=== PATIENT | female | born 1995 | race Caucasian/White ===

== ENCOUNTER 2020-11-09 02:06 | Emergency (ER) | payer OTHER ==
[2020-11-09 02:38] LABS: Appearance CLEAR (CLEAR); Bilirubin NEGATIVE (NEGATIVE); Blood SMALL Ery/ul (0-5); Glucose NEGATIVE (NEGATIVE); Ketones TRACE (NEGATIVE); Leukocyte Esterase NEGATIVE (NEGATIVE); Mucus SLIGHT /HPF (NEGATIVE); Nitrite NEGATIVE (NEGATIVE); Protein,Urine Dip NEGATIVE (Negative); RBC 0-2 /HPF (0-2); Specific Gravity 1.018 (1.005-1.025); Urobilinogen 2 mg/dL (0-1); WBC 0-2 /HPF (0-5)
--- NOTE | 2020-11-09 02:50 | ERPHSYRPT ---
- History of Present Illness Historian: patient Exam Limitations: no limitations Patient Subjective Stated Complaint: pt states "I have had belly pain and vomiting since 8 tonight." Triage Nursing Assessment: pt ambulated into the er; pt is axo x4; c/o abd pain; pt states 5/10 to epigastric region; pt states she took a home tonight and it was positive; abd is flat, soft; pt states radiating pain to rt flank region; tenderness present to epigastric region; pt states BM yesterday; c/o N/V every 20 minutes; hyperactive bowel sounds in all quads; vitals wnl Physician History: 25 yo wf who had a + test yesterday presents w epigastric pain since 20:00. Pain is described as "twisting" and 5/10 on scale. She has had N/V which started before the pain. Pt has never had this pain before, and movement makes it worse. She denies diarrhea/fever/hematemesis/dysuria/hematuria/vaginal bleeding. Pt has had no abdominal surgeries. Timing/Duration: other (20:00) Activities at Onset: rest Quality: other (Twisting) Abdominal Pain Onset Location: epigastric Pain Radiation: no radiation, shoulder Severity of Pain-Current: moderate Associated Symptoms: nausea, vomiting, No back, No chest pain, No diaphoresis, No diarrhea, No fever/chills, No fatigue, No headache, No heartburn, No loss of appetite, No neck pain, No rash, No shortness of breath, No weakness Previous symptoms: no prior history Allergies/Adverse Reactions: No Known Drug Allergies Allergy (Unverified 11/09/20 02:25) Hx Tetanus, Diphtheria Vaccination/Date Given: Yes Hx Influenza Vaccination/Date Given: Yes (2019) Hx Pneumococcal Vaccination/Date Given: No Immunizations Up to Date: Yes Travel Risk - International Travel Have you traveled outside of the country in past 3 weeks: No - Coronavirus Screening Are you exhibiting any of the following symptoms?: No Close contact with a COVID-19 positive Pt in past 14-21 Days: No - Vaccine Status Have you recieved a Covid-19 vaccination: Yes [employer]teration T[employer]or: [employer] - Vaccination Dates Date of 2cond Vaccination (if applicable): n/a Comment: 2nd dose 11/11/20 - Review of Systems Constitutional: No Symptoms Eyes: No Symptoms Ears, Nose, & Throat: No Symptoms Respiratory: No Symptoms Cardiac: No Symptoms Abdominal/Gastrointestinal: Abdominal Pain, Nausea, Vomiting Genitourinary Symptoms: No Symptoms Musculoskeletal: No Symptoms Skin: No Symptoms Neurological: No Symptoms Psychological: No Symptoms Endocrine: No Symptoms Hematologic/Lymphatic: No Symptoms Immunological/Allergic: Pollen Allergy - Past Medical History Pertinent Past Medical History: No - Past Surgical History Past Surgical History: No - Social History Smoking Status: Smoker, status unknown Exposure to second hand smoke: No Drug Use: none Patient Lives Alone: No Significant Family History: no pertinent family hx - Female History Hx Now: Yes (5 weeks) - Nursing Vital Signs Nursing Vital Signs: Initial Vital Signs Temperature 98.6 F 11/09/20 02:26 Pulse Rate 105 H 11/09/20 02:26 Respiratory Rate 16 11/09/20 02:26 Blood Pressure 131/75 11/09/20 02:26 O2 Sat by Pulse Oximetry 100 11/09/20 02:26 Pain Scale Pain Intensity 0 Mildly tachy - Physical Exam General Appearance: no apparent distress Eye Exam: PERRL/EOMI, eyes nml inspection Ears, Nose, Throat Exam: normal ENT inspection, TMs normal, pharynx normal, moist mucous membranes Neck Exam: normal inspection, non-tender, supple, full range of motion, No meningismus, No mass, No Brudzinski, No Kernig's Respiratory Exam: normal breath sounds, lungs clear, airway intact, No respiratory distress Cardiovascular Exam: tachycardia (Mildly) Gastrointestinal/Abdomen Exam: soft, normal bowel sounds, tenderness (Epigastric TTP wo guarding or rebound) Back Exam: normal inspection, normal range of motion Extremity Exam: normal inspection, normal range of motion Neurologic Exam: alert, oriented x 3, cooperative, 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 as tested, normal mood/affect, nml station & gait, sensation nml Skin Exam: normal color, warm, dry Lymphatic Exam: No adenopathy SpO2 Interpretation: normal SpO2: 100 O2 Delivery: Room Air - Course Nursing assessment & vital signs reviewed: Yes Ordered Tests: Medication Summary Discontinued Medications Generic Name Dose Route Start Last Admin Trade Name Freq PRN Reason Stop Dose Admin Sodium Chloride 1,000 mls @ 999 mls/hr 11/09/20 02:53 11/09/20 04:15 Sodium Chloride 0.9% 1000 Ml IV 11/09/20 03:53 Infused .Q1H1M STA Infusion Sodium Chloride Confirm 11/09/20 03:05 Sodium Chloride 0.9% 1000 Ml Administered 11/09/20 03:06 Dose 1,000 mls @ ud .ROUTE .STK-MED ONE Ondansetron HCl 4 mg 11/09/20 02:53 11/09/20 03:06 Zofran 4 Mg/2 Ml Vial IV 11/09/20 02:54 4 mg STAT ONE Administration Ondansetron HCl Confirm 11/09/20 03:05 Zofran 4 Mg/2 Ml Vial Administered 11/09/20 03:06 Dose 4 mg .ROUTE .STK-MED ONE Lab/Rad Data: Laboratory Result Diagrams 11/09/20 06:23 11/09/20 03:10 Laboratory Results 11/09/20 11/09/20 11/09/20 Range/Units 06:23 03:10 03:10 WBC 24.3 H 26.1 H* (4.0-10.5) K/mm3 RBC 4.53 4.65 (4.1-5.4) M/mm3 Hgb 13.7 14.2 (12.0-16.0) gm/dl Hct 40.5 41.5 (35-47) % MCV 89.4 89.2 (78-100) fl MCH 30.2 30.5 (26-32) pg MCHC 33.8 34.2 (32-36) g/dl RDW 12.8 12.8 (11.5-14.0) % Plt Count 241 264 (150-450) K/mm3 MPV 10.3 10.2 (7.5-11.0) fl Gran % 93.8 H (36.0-66.0) % Eos # (Auto) 0.03 (0-0.5) Absolute Lymphs (auto) 0.50 L (1.0-4.6) Absolute Monos (auto) 0.98 (0.0-1.3) Lymphocytes % 2.1 L (24.0-44.0) % Monocytes % 4.0 (0.0-12.0) % Eosinophils % 0.1 (0.00-5.0) % Basophils % 0.0 (0.0-0.4) % Absolute Granulocytes 22.82 H (1.4-6.9) Segmented Neutrophils 91 H (36.0-66.0) % Band Neutrophils 3 H (0.0-2.0) % Lymphocytes (Manual) 2 L (24-44) % Monocytes (Manual) 4 (0.0-12.0) % Basophils # 0.01 (0-0.4) Platelet Estimate NORMAL (NORMAL) RBC Morphology NORMAL Smear Path Review Sodium 136 L (137-145) mmol/L Potassium 3.7 (3.5-5.1) mmol/L Chloride 103 (98-107) mmol/L Carbon Dioxide 23 (22-30) mmol/L Anion Gap 12.6 (5-15) MEQ/L BUN 9 (7-17) mg/dL Creatinine 0.77 (0.52-1.04) mg/dL Estimated GFR > 60.0 ML/MIN Glucose 103 (74-106) mg/dL Calcium 8.7 (8.4-10.2) mg/dL Total Bilirubin 0.50 (0.2-1.3) mg/dL AST 23 (14-36) U/L ALT 27 (0-35) U/L Alkaline Phosphatase 58 (38-126) U/L Serum Total Protein 6.8 (6.3-8.2) g/dL Albumin 4.0 (3.5-5.0) g/dL Amylase 74 (30-110) U/L Lipase 97 (23-300) U/L Beta HCG, Quant 21812 mIU/ml Urine Color (YELLOW) Urine Appearance (CLEAR) Urine pH (5-6) Ur Specific Chama (1.005-1.025) Urine Protein (Negative) Urine Ketones (NEGATIVE) Urine Blood (0-5) Michael/ul Urine Nitrite (NEGATIVE) Urine Bilirubin (NEGATIVE) Urine Urobilinogen (0-1) mg/dL Ur Leukocyte Esterase (NEGATIVE) Urine WBC (Auto) (0-5) /HPF Urine RBC (Auto) (0-2) /HPF U Epithel Cells (Auto) (FEW) /HPF Urine Mucus (Auto) (NEGATIVE) /HPF Urine Culture Reflexed (NO) Urine Glucose (NEGATIVE) mg/dL Urine HCG, Qual (Negative) Slides for Path Review YES 11/09/20 11/09/20 Range/Units 02:25 02:25 WBC (4.0-10.5) K/mm3 RBC (4.1-5.4) M/mm3 Hgb (12.0-16.0) gm/dl Hct (35-47) % MCV (78-100) fl MCH (26-32) pg MCHC (32-36) g/dl RDW (11.5-14.0) % Plt Count (150-450) K/mm3 MPV (7.5-11.0) fl Gran % (36.0-66.0) % Eos # (Auto) (0-0.5) Absolute Lymphs (auto) (1.0-4.6) Absolute Monos (auto) (0.0-1.3) Lymphocytes % (24.0-44.0) % Monocytes % (0.0-12.0) % Eosinophils % (0.00-5.0) % Basophils % (0.0-0.4) % Absolute Granulocytes (1.4-6.9) Segmented Neutrophils (36.0-66.0) % Band Neutrophils (0.0-2.0) % Lymphocytes (Manual) (24-44) % Monocytes (Manual) (0.0-12.0) % Basophils # (0-0.4) Platelet Estimate (NORMAL) RBC Morphology Smear Path Review Sodium (137-145) mmol/L Potassium (3.5-5.1) mmol/L Chloride (98-107) mmol/L Carbon Dioxide (22-30) mmol/L Anion Gap (5-15) MEQ/L BUN (7-17) mg/dL Creatinine (0.52-1.04) mg/dL Estimated GFR ML/MIN Glucose (74-106) mg/dL Calcium (8.4-10.2) mg/dL Total Bilirubin (0.2-1.3) mg/dL AST (14-36) U/L ALT (0-35) U/L Alkaline Phosphatase (38-126) U/L Serum Total Protein (6.3-8.2) g/dL Albumin (3.5-5.0) g/dL Amylase (30-110) U/L Lipase (23-300) U/L Beta HCG, Quant mIU/ml Urine Color YELLOW (YELLOW) Urine Appearance CLEAR (CLEAR) Urine pH 5.0 (5-6) Ur Specific Chama 1.018 (1.005-1.025) Urine Protein NEGATIVE (Negative) Urine Ketones TRACE (NEGATIVE) Urine Blood SMALL (0-5) Michael/ul Urine Nitrite NEGATIVE (NEGATIVE) Urine Bilirubin NEGATIVE (NEGATIVE) Urine Urobilinogen 2 (0-1) mg/dL Ur Leukocyte Esterase NEGATIVE (NEGATIVE) Urine WBC (Auto) 0-2 (0-5) /HPF Urine RBC (Auto) 0-2 (0-2) /HPF U Epithel Cells (Auto) NONE (FEW) /HPF Urine Mucus (Auto) SLIGHT (NEGATIVE) /HPF Urine Culture Reflexed NO (NO) Urine Glucose NEGATIVE (NEGATIVE) mg/dL Urine HCG, Qual POSITIVE (Negative) Slides for Path Review - Progress Progress: improved Progress Note: 11/09/20 05:59 IV NS bolus/4mg IV Zofran w improvement US [id number] IUP per tech Gallbladder wnl per tech 11/09/20 06:44 CBC rechecked w WBC 24.3 Spoke to pt about admit due to pain of unknown etiology and leukocytosis. Pt refused admit at this time but agreed to come back to the ER if pain increased, vomiting increased, or if she developed a fever. Risks explained to pt. Counseled pt/family regarding: lab results, diagnosis, rad results - Departure Departure Disposition: Home Clinical Impression: Abdominal pain, Intrauterine , Leukocytosis Condition: Stable Critical Care Time: No Referrals: RERE BYNUM, WANDA [Primary Care Provider] - Instructions: Acute Abdomen (Belly Pain), Adult (DC) Additional Instructions: Fluids Rest Return to ER for increasing pain or temperature greater than 100.5 Follow up with your family MD and/or OB Prescriptions: Ondansetron ODT 4 MG [Zofran Odt 4 mg] 4 mg PO Q6H PRN PRN #10 PRN Reason: Nausea/Vomiting
[2020-11-09] MEDS ORDERED: Zofran 4 MG/2 ML VIAL IV ONE (02:53)
[2020-11-09] MEDS ORDERED: Sodium Chloride 0.9% 1000 ML 1,000 ML IV STA (02:53)
[2020-11-09] MEDS ORDERED: Zofran 4 MG/2 ML VIAL ONE (03:05)
[2020-11-09] MEDS ORDERED: Sodium Chloride 0.9% 1000 ML 1,000 ML ONE (03:05)
[2020-11-09 03:21] LABS: Hematocrit 41.5 % (35-47); Hemoglobin 14.2 gm/dl (12.0-16.0); Mean Cell Volume 89.2 fl (78-100); Mean Corpuscular Hemoglobin 30.5 pg (26-32); Mean Corpuscular Hgb Concent. 34.2 g/dl (32-36); Mean Platelet Volume 10.2 fl (7.5-11.0); Platelet Count 264 K/mm3 (150-450); Red Blood Count 4.65 M/mm3 (4.1-5.4); Red Cell Distribution Width 12.8 % (11.5-14.0)
[2020-11-09 03:23] LABS: White Blood Count 26.1 K/mm3 (4.0-10.5)
[2020-11-09 03:49] LABS: ALKALINE PHOSPHATASE 58 U/L (38-126); AMYLASE 74 U/L (30-110); ANION GAP 12.6 MEQ/L (5-15); BLOOD UREA NITROGEN 9 mg/dL (7-17); CHLORIDE 103 mmol/L (98-107); Calcium 8.7 mg/dL (8.4-10.2); Carbon Dioxide 23 mmol/L (22-30); Creatinine 1 0.77 mg/dL (0.52-1.04); EST GLOMERULAR FILTRATION RATE > 60.0 ML/MIN; Glucose 103 mg/dL (74-106); HCG, Quantitative (Inhouse) 14637 mIU/ml; LIPASE 97 U/L (23-300); Potassium 3.7 mmol/L (3.5-5.1); SGOT/AST 23 U/L (14-36); SGPT/ALT 27 U/L (0-35); SODIUM 136 mmol/L (137-145); Total Protein 6.8 g/dL (6.3-8.2)
[2020-11-09 05:17] LABS: BAND 3 % (0.0-2.0); Lymphocytes 2 % (24-44); Monocyte 4 % (0.0-12.0); Neutrophils 91 % (36.0-66.0); Total Cells Counted 100
[2020-11-09 05:18] LABS: Platelet Estimate NORMAL (NORMAL)
[2020-11-09 06:31] LABS: Absolute Neutrophil Ct (ANC) 22.82 (1.4-6.9); Basophil (Absolute #) 0.01 (0-0.4); Eosinophil % 0.1 % (0.00-5.0); Eosinophil (Absolute #) 0.03 (0-0.5); Hematocrit 40.5 % (35-47); Hemoglobin 13.7 gm/dl (12.0-16.0); Lymphocytes % 2.1 % (24.0-44.0); Mean Cell Volume 89.4 fl (78-100); Mean Corpuscular Hemoglobin 30.2 pg (26-32); Mean Corpuscular Hgb Concent. 33.8 g/dl (32-36); Mean Platelet Volume 10.3 fl (7.5-11.0); Monocyte (Absolute #) 0.98 (0.0-1.3); Neutrophil % 93.8 % (36.0-66.0); Platelet Count 241 K/mm3 (150-450); Red Blood Count 4.53 M/mm3 (4.1-5.4); Red Cell Distribution Width 12.8 % (11.5-14.0); White Blood Count 24.3 K/mm3 (4.0-10.5)
[2020-11-09 07:04] VITALS: BP 111/60; PULSE 98
--- NOTE | 2020-11-09 08:56 | XRAY ---
Indication: Pain. Elevated WBC. Two-dimensional transabdominal and transvaginal pelvic sonogram performed. Comparison: None Uterus anteverted measuring 9.0 x 5.2 x 6.7 cm. There is a single intrauterine gestational sac with a single pole. Mean crown-rump length measures 0.23 cm corresponding to 5 weeks 5 days. No heart tones detected presumed early . Left and right ovaries are sonographically unremarkable with normal color perfusion. No suspicious adnexal mass or free fluid. Impression: Single intrauterine measuring 5 weeks 5 days. No heart tones presumed early . Correlate with serial beta hCG and follow-up sonogram regarding viability. Comment: Preliminary report was given.
--- NOTE | 2020-11-09 08:58 | XRAY ---
Indication: Pain. Elevated WBC. Two-dimensional right upper quadrant abdominal sonogram performed. Comparison: None Visualized liver, pancreas, and gallbladder are sonographically normal. No organomegaly or ascites. Common bile duct measures 1.2 mm. No intrahepatic biliary distention. Right kidney measures 10.0 x 4.3 x 4.7 cm. No focal solid/cystic renal mass or hydronephrosis. Impression: Negative right upper quadrant sonogram. Comment: Preliminary report was given.
[2020-11-09 10:05] LABS: Slide Review 1 YES
[2020-11-15 07:27] VITALS: O2SAT 100
== END 2020-11-09 07:04 | disposition home or self-care (01) ==
LOC: ED 02:06
DX: O26.891 Other specified pregnancy related conditions, first trimester (principal); Z3A.01 Less than 8 weeks gestation of pregnancy; R10.9 Unspecified abdominal pain; D72.829 Elevated white blood cell count, unspecified
CPT/HCPCS: 36000; 36415; 76705; 76801; 80053; 81001; 82150; 83690; 84702; 84703; 85025; 96360; 96374; 99284; J2405

== ENCOUNTER 2022-04-08 16:31 | Emergency (ER) | payer OTHER ==
--- NOTE | 2022-04-08 16:36 | ERPHSYRPT ---
- History of Present Illness Time Seen by Provider: 04/08/22 16:36 Historian: patient Exam Limitations: no limitations Physician History: This is a 26-year-old white female patient who presents with right upper quadrant abdominal pain that radiates around to her right flank. She is in moderate pain. It is associated with nausea. It came on 3 hours ago. She states she is never had anything like this before. She has never had any abdominal or pelvic surgeries. She has not had a cough. She has not had fevers. She has had no vomiting or diarrhea. Patient states that for lunch she ate a cheeseburger and fries from [employer]. She did not eat breakfast. Timing/Duration: today, hour(s) Activities at Onset: none Abdominal Pain Onset Location: RUQ Pain Radiation: flank Severity of Pain-Max: moderate (Right flank) Modifying Factors: Improves With: nothing Associated Symptoms: nausea, No chest pain, No diarrhea, No shortness of breath, No vomiting, No weakness Previous symptoms: no prior history Allergies/Adverse Reactions: No Known Drug Allergies Allergy (Verified 04/08/22 16:40) Hx Tetanus, Diphtheria Vaccination/Date Given: Yes Hx Influenza Vaccination/Date Given: Yes (2019) Hx Pneumococcal Vaccination/Date Given: No Travel Risk - International Travel Have you traveled outside of the country in past 3 weeks: No - Coronavirus Screening Are you exhibiting any of the following symptoms?: No Close contact with a COVID-19 positive Pt in past 14-21 Days: No - Vaccine Status Have you recieved a Covid-19 vaccination: Yes 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: [employer] - Vaccination Dates Date of 2cond Vaccination (if applicable): n/a Comment: 2nd dose 11/11/20 - Review of Systems Constitutional: No Symptoms Eyes: No Symptoms Ears, Nose, & Throat: No Symptoms Respiratory: No Symptoms Cardiac: No Symptoms Abdominal/Gastrointestinal: Abdominal Pain, Nausea, No Vomiting, No Diarrhea, No Constipation Genitourinary Symptoms: No Symptoms Musculoskeletal: No Symptoms Skin: No Symptoms Neurological: No Symptoms Psychological: No Symptoms Endocrine: No Symptoms Hematologic/Lymphatic: No Symptoms Immunological/Allergic: No Symptoms All Other Systems: Reviewed and Negative - Past Medical History Pertinent Past Medical History: No - Past Surgical History Past Surgical History: No - Social History Smoking Status: Smoker, status unknown Exposure to second hand smoke: No Drug Use: none Patient Lives Alone: No Significant Family History: no pertinent family hx - Nursing Vital Signs Nursing Vital Signs: Initial Vital Signs Temperature 98.8 F 04/08/22 16:46 Pulse Rate 102 H 04/08/22 16:46 Respiratory Rate 18 04/08/22 16:46 Blood Pressure 122/66 04/08/22 16:46 O2 Sat by Pulse Oximetry 99 04/08/22 16:46 Pain Scale Pain Intensity 0 - Physical Exam General Appearance: no apparent distress, alert, anxiety Eye Exam: PERRL/EOMI, eyes nml inspection Ears, Nose, Throat Exam: normal ENT inspection, moist mucous membranes Neck Exam: normal inspection, non-tender, supple, full range of motion Respiratory Exam: normal breath sounds, lungs clear, No chest tenderness, No respiratory distress, No airway intact Cardiovascular Exam: regular rate/rhythm, normal heart sounds, normal peripheral pulses Gastrointestinal/Abdomen Exam: soft, normal bowel sounds, tenderness (Right upper quadrant to palpation), guarding (Right upper quadrant to palpation), No rebound Pelvic Exam: adnexal mass Rectal Exam: not done Back Exam: normal inspection, normal range of motion, No CVA tenderness, No vertebral tenderness Extremity Exam: normal inspection, normal range of motion, pelvis stable Neurologic Exam: alert, oriented x 3, cooperative, transfusion nurse II-XII nml as tested, normal mood/affect, nml cerebellar function, nml station & gait, sensation nml Skin Exam: normal color, warm, dry Lymphatic Exam: No adenopathy SpO2 Interpretation: normal O2 Delivery: Room Air - Course Nursing assessment & vital signs reviewed: Yes Ordered Tests: Active Orders 24 hr Category Date Time Status IV Insertion STAT Care 04/08/22 16:46 Active ABDOMEN AND PELVIS W/0 CONTRAS [CT] Stat Exams 04/08/22 16:47 Taken AMYLASE Stat Lab 04/08/22 16:59 Completed CBC W DIFF Stat Lab 04/08/22 16:59 Completed CMP Stat Lab 04/08/22 16:59 Completed CULTURE,URINE Stat Lab 04/08/22 16:50 Received HCG QUALITATIVE,SERUM Stat Lab 04/08/22 16:59 Completed LIPASE Stat Lab 04/08/22 16:59 Completed UA W/RFX UR CULTURE Stat Lab 04/08/22 16:50 Completed Medication Summary Discontinued Medications Generic Name Dose Route Start Last Admin Trade Name Freq PRN Reason Stop Dose Admin Sodium Chloride 1,000 mls @ 999 mls/hr 04/08/22 16:46 04/08/22 17:54 Sodium Chloride 0.9% 1000 Ml IV 04/08/22 17:46 Infused .Q1H1M STA Infusion Sodium Chloride Confirm 04/08/22 16:53 Sodium Chloride 0.9% 1000 Ml Administered 04/08/22 16:54 Dose 1,000 mls @ ud .ROUTE .STK-MED ONE Ceftriaxone Sodium/Dextrose 1 g in 50 mls @ 100 mls/hr 04/08/22 17:42 04/08/22 17:48 Rocephin 1 Gm-D5w 50 Ml Bag IV 04/08/22 18:11 100 ml/hr STAT STA 100 mls/hr Administration Ceftriaxone Sodium/Dextrose Confirm 04/08/22 17:46 Rocephin 1 Gm-D5w 50 Ml Bag Administered 04/08/22 17:47 Dose 1 g in 50 mls @ ud IV .STK-MED ONE Ketorolac Tromethamine 30 mg 04/08/22 16:59 04/08/22 17:01 Ketorolac Tromethamine 30 Mg/Ml Inj IV 04/08/22 17:00 30 mg STAT ONE Administration Ketorolac Tromethamine Confirm 04/08/22 17:01 Ketorolac Tromethamine 30 Mg/Ml Inj Administered 04/08/22 17:02 Dose 30 mg .ROUTE .STK-MED ONE Morphine Sulfate 2 mg 04/08/22 16:55 04/08/22 17:00 Morphine Sulfate 2 Mg/Ml Inj IV 04/08/22 16:56 Not Given STAT ONE Ondansetron HCl 4 mg 04/08/22 16:46 04/08/22 16:55 Ondansetron Hcl 4 Mg/2 Ml Vial IV 04/08/22 16:47 4 mg STAT ONE Administration Ondansetron HCl Confirm 04/08/22 16:53 Ondansetron Hcl 4 Mg/2 Ml Vial Administered 04/08/22 16:54 Dose 4 mg .ROUTE .STK-MED ONE Lab/Rad Data: Laboratory Result Diagrams 04/08/22 16:59 04/08/22 16:59 Laboratory Results 04/08/22 04/08/22 04/08/22 Range/Units 16:59 16:59 16:59 WBC 12.1 H (4.0-10.5) x10^3/uL RBC 5.14 (4.1-5.4) x10^6/uL Hgb 15.3 (12.0-16.0) g/dL Hct 44.9 (35-47) % MCV 87.4 (78-100) fL MCH 29.8 (26-32) pg MCHC 34.1 (32-36) g/dL RDW 12.3 (11.5-14.0) % Plt Count 323 (150-450) x10^3/uL MPV 10.3 (7.5-11.0) fL Gran % 70.8 H (36.0-66.0) % Immature Gran % (Auto) 0.2 (0.00-0.4) % Nucleat RBC Rel Count 0.0 (0.00-0.1) % Eos # (Auto) 0.18 (0-0.5) x10^3/uL Immature Gran # (Auto) 0.02 (0.00-0.03) x10^3u/L Absolute Lymphs (auto) 2.36 (1.0-4.6) x10^3/uL Absolute Monos (auto) 0.91 (0.0-1.3) x10^3/uL Absolute Nucleated RBC 0.00 (0.00-0.01) x10^3u/L Lymphocytes % 19.5 L (24.0-44.0) % Monocytes % 7.5 (0.0-12.0) % Eosinophils % 1.5 (0.00-5.0) % Basophils % 0.5 (0.0-0.4) % Absolute Granulocytes 8.60 H (1.4-6.9) x10^3/uL Basophils # 0.06 (0-0.4) x10^3/uL Sodium 140 (137-145) mmol/L Potassium 3.8 (3.5-5.1) mmol/L Chloride 103 (98-107) mmol/L Carbon Dioxide 27 (22-30) mmol/L Anion Gap 13.8 (5-15) MEQ/L BUN 10 (7-17) mg/dL Creatinine 0.79 (0.52-1.04) mg/dL Estimated GFR > 60.0 ML/MIN Glucose 108 H (74-106) mg/dL Calcium 9.4 (8.4-10.2) mg/dL Total Bilirubin 0.50 (0.2-1.3) mg/dL AST 29 (14-36) U/L ALT 29 (0-35) U/L Alkaline Phosphatase 76 (38-126) U/L Serum Total Protein 8.2 (6.3-8.2) g/dL Albumin 4.7 (3.5-5.0) g/dL Amylase 73 (30-110) U/L Lipase 106 (23-300) U/L Serum , Qual NEGATIVE (Negative) Urine Color (Yellow) Urine Appearance (Clear) Urine pH (4.6-8.0) Ur Specific Gleason (1.005-1.030) Urine Protein (Negative) Urine Glucose (UA) (Negative) mg/dL Urine Ketones (Negative) Urine Blood (Negative) Urine Nitrite (Negative) Urine Bilirubin (Negative) Urine Urobilinogen (0.2) mg/dL Ur Leukocyte Esterase (Negative) U Hyaline Cast (Auto) (0-2) /LPF Urine Microscopic RBC (0-5) /HPF Urine Microscopic WBC (0-5) /HPF Ur Epithelial Cells (None Seen) /HPF Urine Bacteria (None Seen) /HPF Urine Culture Reflexed (NO) 04/08/22 Range/Units 16:50 WBC (4.0-10.5) x10^3/uL RBC (4.1-5.4) x10^6/uL Hgb (12.0-16.0) g/dL Hct (35-47) % MCV (78-100) fL MCH (26-32) pg MCHC (32-36) g/dL RDW (11.5-14.0) % Plt Count (150-450) x10^3/uL MPV (7.5-11.0) fL Gran % (36.0-66.0) % Immature Gran % (Auto) (0.00-0.4) % Nucleat RBC Rel Count (0.00-0.1) % Eos # (Auto) (0-0.5) x10^3/uL Immature Gran # (Auto) (0.00-0.03) x10^3u/L Absolute Lymphs (auto) (1.0-4.6) x10^3/uL Absolute Monos (auto) (0.0-1.3) x10^3/uL Absolute Nucleated RBC (0.00-0.01) x10^3u/L Lymphocytes % (24.0-44.0) % Monocytes % (0.0-12.0) % Eosinophils % (0.00-5.0) % Basophils % (0.0-0.4) % Absolute Granulocytes (1.4-6.9) x10^3/uL Basophils # (0-0.4) x10^3/uL Sodium (137-145) mmol/L Potassium (3.5-5.1) mmol/L Chloride (98-107) mmol/L Carbon Dioxide (22-30) mmol/L Anion Gap (5-15) MEQ/L BUN (7-17) mg/dL Creatinine (0.52-1.04) mg/dL Estimated GFR ML/MIN Glucose (74-106) mg/dL Calcium (8.4-10.2) mg/dL Total Bilirubin (0.2-1.3) mg/dL AST (14-36) U/L ALT (0-35) U/L Alkaline Phosphatase (38-126) U/L Serum Total Protein (6.3-8.2) g/dL Albumin (3.5-5.0) g/dL Amylase (30-110) U/L Lipase (23-300) U/L Serum , Qual (Negative) Urine Color Yellow (Yellow) Urine Appearance Clear (Clear) Urine pH 5.5 (4.6-8.0) Ur Specific Gleason 1.020 (1.005-1.030) Urine Protein 30 (Negative) Urine Glucose (UA) Negative (Negative) mg/dL Urine Ketones Negative (Negative) Urine Blood Small A (Negative) Urine Nitrite Positive A (Negative) Urine Bilirubin Negative (Negative) Urine Urobilinogen 0.2 (0.2) mg/dL Ur Leukocyte Esterase Moderate A (Negative) U Hyaline Cast (Auto) NONE SEEN (0-2) /LPF Urine Microscopic RBC 6-10 A (0-5) /HPF Urine Microscopic WBC >100 A (0-5) /HPF Ur Epithelial Cells None Seen (None Seen) /HPF Urine Bacteria Few A (None Seen) /HPF Urine Culture Reflexed YES (NO) - Progress Progress: improved, pain not gone completely, re-examined Progress Note: 04/08/22 16:59 Patient states that she does not want any narcotics and prefers Toradol. We will provide her with Toradol 30 mg intravenously 04/08/22 17:39 This patient's medical issue is of moderate complexity. The work-up was based on review of the patient's past medical history including medication list and drug allergy list. We also took into account the history of present illness and findings on physical examination. Because of her symptoms, and findings on physical examination, we ordered a urinalysis, put an IV in place and provided her with infusion of 1 L of normal saline solution. I gave her 30 mg of Toradol intravenously. I also ordered a test, CBC CMP amylase and lipase. I ordered a CAT scan of the abdomen and pelvis without contrast. I reviewed the laboratory data. The patient has at least a urinary tract infection. I discussed this finding with her. I am awaiting the results of the CAT scan of the abdomen pelvis. 04/08/22 17:40 04/08/22 18:17 CT scan impression evaluated and read by the radiologist and I reviewed this report which shows distal right ureteral calculus 1 mm in size. No significant hydronephrosis or evidence of obstructive uropathy. Counseled pt/family regarding: lab results, diagnosis, need for follow-up, rad results Medical Desision Making - Discussion of managment Reviewed:: Test results Agreed on:: Treatment plan, need for follow-up - Diagnostic Testing Diagnostic test were ordered, analyzed, and reviewed by me: Yes Radiological Interpretation: Reviewed by me, Teleradiologist Report - Risk of complications The pt has a mod risk of morbidity or mortality based on: Need for prescription drug management - Departure Departure Disposition: Home Clinical Impression: UTI (urinary tract infection), Right ureteral calculus Condition: Stable Critical Care Time: No Referrals: RERE BYNUM NP [Primary Care Provider] - Follow up/PCP as directed Instructions: Kidney Stones (DC), Urinary Tract Infection, Adult (DC) Additional Instructions: Drink plenty of fluids. Take your antibiotics as prescribed. Use Tylenol and ibuprofen for pain and fever control. Follow-up with your primary care provider for further evaluation and management. Prescriptions: Ciprofloxacin [Cipro 500 MG] 500 mg PO BID #14 tablet
[2022-04-08] MEDS ORDERED: Zofran 4 MG/2 ML VIAL IV ONE (16:46)
[2022-04-08] MEDS ORDERED: Sodium Chloride 0.9% 1000 ML 1,000 ML IV STA (16:46)
[2022-04-08 16:47] VITALS: O2SAT 99
[2022-04-08] MEDS ORDERED: Zofran 4 MG/2 ML VIAL ONE (16:53)
[2022-04-08] MEDS ORDERED: Sodium Chloride 0.9% 1000 ML 1,000 ML ONE (16:53)
[2022-04-08] MEDS ORDERED: MORPHINE SULFATE 2 MG INJ IV ONE (16:55)
[2022-04-08] MEDS ORDERED: TORAdol 30 mg Injection IV ONE (16:59)
[2022-04-08 17:00] LABS: Appearance Clear (Clear); Bacteria Few /HPF (None Seen); Bilirubin Negative (Negative); Blood Small (Negative); Epithelial Cells None Seen /HPF (None Seen); Glucose, Urine Negative (Negative); Hyaline Casts NONE SEEN /LPF (0-2); Ketones Negative (Negative); Leukocyte Esterase Moderate (Negative); Nitrite Positive (Negative); Ph 5.5 (4.6-8.0); Protein,Urine Dip 30 (Negative); Urobilinogen 0.2 mg/dL (0.2); WBC >100 /HPF (0-5)
[2022-04-08 17:01] LABS: BASOPHIL % 0.5 % (0.0-0.4); Basophil (Absolute #) 0.06 x10^3/uL (0-0.4); Eosinophil % 1.5 % (0.00-5.0); Eosinophil (Absolute #) 0.18 x10^3/uL (0-0.5); Hematocrit 44.9 % (35-47); Hemoglobin 15.3 g/dL (12.0-16.0); IMMATURE GRAN # 0.02 x10^3u/L (0.00-0.03); IMMATURE GRAN % 0.2 % (0.00-0.4); Lymphocyte (Absolute #) 2.36 x10^3/uL (1.0-4.6); Lymphocytes % 19.5 % (24.0-44.0); Mean Cell Volume 87.4 fL (78-100); Mean Corpuscular Hemoglobin 29.8 pg (26-32); Mean Corpuscular Hgb Concent. 34.1 g/dL (32-36); Mean Platelet Volume 10.3 fL (7.5-11.0); Monocyte (Absolute #) 0.91 x10^3/uL (0.0-1.3); Monocytes % 7.5 % (0.0-12.0); Neutrophil % 70.8 % (36.0-66.0); Platelet Count 323 x10^3/uL (150-450); Red Blood Count 5.14 x10^6/uL (4.1-5.4); Red Cell Distribution Width 12.3 % (11.5-14.0); White Blood Count 12.1 x10^3/uL (4.0-10.5)
[2022-04-08] MEDS ORDERED: TORAdol 30 mg Injection ONE (17:01)
[2022-04-08 17:04] LABS: ADD URINE CULTURE? YES (NO)
[2022-04-08 17:14] LABS: ALBUMIN 4.7 g/dL (3.5-5.0); ALKALINE PHOSPHATASE 76 U/L (38-126); AMYLASE 73 U/L (30-110); ANION GAP 13.8 MEQ/L (5-15); BLOOD UREA NITROGEN 10 mg/dL (7-17); CHLORIDE 103 mmol/L (98-107); Calcium 9.4 mg/dL (8.4-10.2); Carbon Dioxide 27 mmol/L (22-30); Creatinine 1 0.79 mg/dL (0.52-1.04); EST GLOMERULAR FILTRATION RATE > 60.0 ML/MIN; Glucose 108 mg/dL (74-106); LIPASE 106 U/L (23-300); Potassium 3.8 mmol/L (3.5-5.1); SGOT/AST 29 U/L (14-36); SGPT/ALT 29 U/L (0-35); SODIUM 140 mmol/L (137-145); Total Protein 8.2 g/dL (6.3-8.2)
[2022-04-08] MEDS ORDERED: ROCEPHIN 1 Gm-D5w 50 ml Bag** 1 G/50 ML IVPB IV STA (17:42)
[2022-04-08] MEDS ORDERED: ROCEPHIN 1 Gm-D5w 50 ml Bag** 1 G/50 ML IVPB IV ONE (17:46)
[2022-04-08 18:06] VITALS: BP 105/61; PULSE 92
--- NOTE | 2022-04-08 20:38 | XRAY ---
Indication: White upper quadrant/right flank pain. Nausea and bloating. Multiple contiguous axial images obtained through the abdomen and pelvis without contrast. Comparison: None Lung bases demonstrates mild bilateral dependent atelectasis. Heart not enlarged. Stomach distended with food. Gallbladder contracted. Noncontrasted stomach and bowel loops appear nonobstructed with normal appendix. No free fluid/air. Right kidney mildly hydronephrotic with possible 2-3 mm distal right ureteral calculus approximately 1 center proximal to the UVJ (best seen sagittal image 87). Remaining liver, gallbladder, pancreas, spleen, adrenal glands, kidneys, ureters, bladder, uterus, and aorta are unremarkable for noncontrast exam. Osseous structures intact. No ventral or inguinal hernias. Impression: 1. Mild right renal hydronephrosis. Query 2-3 mm distal right ureteral calculus. 2. Remaining CT abdomen/pelvis without contrast exam is negative. Comment: Preliminary interpretation made by [facility]. No critical discrepancy.
== END 2022-04-08 18:20 | disposition home or self-care (01) ==
LOC: ED 16:31
DX: N20.1 Calculus of ureter (principal); N39.0 Urinary tract infection, site not specified; R10.11 Right upper quadrant pain; R11.0 Nausea
CPT/HCPCS: 36000; 36415; 74176; 80053; 81001; 82150; 83690; 84703; 85025; 87077; 87086; 87186; 96374; 96375; 99284; J0696; J1885; J2405